=== PATIENT | male | born 1990 | race Caucasian/White ===

== ENCOUNTER 2019-10-04 19:15 | Inpatient (IN) | payer MEDICAID ==
[~2019-10-04] VITALS: Ht 175.3 cm; Wt 122.0 kg
[2019-10-04 19:54] LABS: BASOPHILS # (AUTO) 0.1 X10'3 (0-0.2); BASOPHILS % (AUTO) 0.4 % (0-1); EOSINOPHILS % (AUTO) 0.2 % (0-6); HEMATOCRIT 53.9 % (42.0-52.0); LYMPHOCYTES # (AUTO) 1.6 X10'3 (1.1-4.8); LYMPHOCYTES % (AUTO) 7.3 % (21-51); MEAN CORPUSCULAR HGB CONC 35.3 g/dL (33.0-36.5); MEAN CORPUSCULAR VOLUME 90.7 FL (78-98); MEAN PLATELET VOLUME 9.5 FL (7.4-10.4); MONOCYTES % (AUTO) 4.5 % (2-12); NEUTROPHILS # (AUTO) 18.6 X10'3 (1.8-7.7); NEUTROPHILS % (AUTO) 87.6 % (42-75); PLATELET COUNT 317 X10'3 (140-440); RED BLOOD COUNT 5.95 X10'6 (4.70-6.10); RED CELL DISTRIBUTION WIDTH 13.3 % (11.5-14.5); WHITE BLOOD COUNT 21.2 X10'3 (4.5-11.0)
[2019-10-04 20:03] LABS: TOTAL CARBON DIOXIDE 20.9 MMOL/L (24-32)
[2019-10-04] MEDS ORDERED: normal saline 1000ML IV soln IVB ONE (20:05)
[2019-10-04 20:28] LABS: ALANINE AMINOTRANSFERASE 52 U/L (12-78); ALBUMIN 3.8 G/DL (3.4-5.0); ALBUMIN/GLOBULIN RATIO 0.7 (1.1-1.5); ALKALINE PHOSPHATASE 116 IU/L (46-116); ANION GAP 15 (8-16); ASPARTATE AMINO TRANSFERASE 31 U/L (10-37); BILIRUBIN,TOTAL 0.8 MG/DL (0.1-1.0); BLOOD UREA NITROGEN 14 MG/DL (7-18); BUN/CREATININE RATIO 13.9 (5.4-32.0); CALCIUM 9.2 MG/DL (8.5-10.1); CHLORIDE 97 MMOL/L (99-107); CREATININE 1.01 MG/DL (0.60-1.10); GLUCOSE 375 MG/DL (70-104); POTASSIUM 4.4 MMOL/L (3.5-5.1); SODIUM 133 MMOL/L (135-145); TOTAL PROTEIN 8.9 G/DL (6.4-8.2); eGFR 87 ML/MIN
[2019-10-04] MEDS ORDERED: morphine 4 MG/ML inj SYRINge IV ONE ×3 (20:45→22:05)
[2019-10-04] MEDS ORDERED: ondansetron/PF 4mg/2ml inj IV ONE (20:45)
--- NOTE | 2019-10-04 20:48 | NUR ---
DR SANTAMARIA UPDATED OF PTS PAIN , 7 OUT OF 10 TO MID ABDOMEN AND NAUSEA. VERBAL RECEIVED FOR ZOFRAN AND MORPHINE IV. JUST STARTED 2ND OF 2 LITERS NS BOLUS. STABLE VS.
[2019-10-04 20:53] LABS: CLARITY,URINE CLEAR (Clear); COLOR,URINE YELLOW (Yellow); GLUCOSE, URINE >=1000 mg/dl (Neg); KETONES,URINE >=80 mg/dl (Neg); LEUKOCYTE ESTERASE ,URINE NEGATIVE (Neg); NITRITES, URINE NEGATIVE (Neg); OCCULT BLOOD,URINE TRACE-INTACT (Neg); PH,URINE 5.5 (4.8-8.0); PROTEIN,URINE 100 mg/dl (Neg); UROBILINOGEN,URINE 0.2 E.U/dL (0.2-1.0)
[2019-10-04 20:54] LABS: UA COLLECTION TYPE URINAL
[2019-10-04 21:00] LABS: BACTERIA,URINE NONE SEEN /HPF (Neg); FINE GRANULAR CAST 0-3 /LPF (NEGATIVE); HYALINE CASTS 0-3 /LPF (NEGATIVE); MUCUS STRANDS NONE SEEN /LPF (Neg); RBC,URINE NONE SEEN /HPF (0-2); SQUAMOUS EPITHELIAL CELL,UR MODERATE /LPF (FEW); WBC,URINE NONE SEEN /HPF (0-4)
[2019-10-04 21:05] LABS: LIPASE 14811 U/L (73-393)
--- NOTE | 2019-10-04 21:23 | NUR ---
LIPASE 14,811. GLU 375. PT AWAITING [facility] US.
--- NOTE | 2019-10-04 21:56 | NUR ---
VERBAL FOR ADTL PAIN MEDS BY dR. SANTAMARIA. MSIV 4 MG
[2019-10-04] MEDS ORDERED: insulin regular, human 10 units/0.1 ml syringe IV ONE (22:05)
--- NOTE | 2019-10-04 23:56 | NUR ---
PT STILL AWAITING [employer] FOR [facility] US. PT UPDATED ON PLAN OF CARE. HR 106, OTHERWISE VSS.
[2019-10-05] MEDS ORDERED: METF500T PO (00:09)
--- NOTE | 2019-10-05 00:35 | NUR ---
per dr. mcpherson pt to be admitted. pt updated and just called his uncle (who has been waiting for pt) to let him know. pt is agreeable to the plan. current vss. pain now 1 out of 10. pt is comfortable. given warm blanket.
[2019-10-05] MEDS ORDERED: glucagon, human recombinant 1mg kit SUBCUT PRN (01:25)
[2019-10-05] MEDS ORDERED: morphine 2 MG/ML inj. syringe IV PRN (01:25)
[2019-10-05] MEDS ORDERED: dextrose 50%-water 50ml dispensing syringe IV PRN ×2 (01:25)
[2019-10-05] MEDS ORDERED: MESSAGE TO PHARMACY PO ONE (01:25)
[2019-10-05] MEDS ORDERED: ondansetron/PF 4mg/2ml inj IV PRN (01:25)
[2019-10-05] MEDS ORDERED: dextrose ORAL solution 15 GM/59 ML bottle PO PRN ×2 (01:25)
[2019-10-05 01:47] LABS: HEMOGLOBIN A1C 9.7 % (4.5-6.2)
[2019-10-05] MEDS: normal saline 1000ml 1,000 ML IV SCH ×3 (01:53→20:16)
--- NOTE | 2019-10-05 01:56 | NUR ---
HR 106, OTHERWISE VSS, PAIN IS MINIMAL TO ABDOMEN. IPA [id number].
--- NOTE | 2019-10-05 02:05 | NUR ---
Patient in room ED 1. I have received report from CHRISTOPHER Gomes ER and had the opportunity to ask questions and assume patient care.
[2019-10-05 02:07] LABS: TRIGLYCERIDES 1031 MG/DL (20-135)
[2019-10-05 02:31] VITALS: BP 131/77
--- NOTE | 2019-10-05 02:31 | NUR ---
pt just arrived to surgical floor by w/c, alert, oriented and denies any pain
--- NOTE | 2019-10-05 06:31 | NUR ---
Problems reprioritized. Patient report given, questions answered & plan of care reviewed with HCRISTOPHER Mclean. Addendum: 10/05/19 at 0631 by Anais Brennan RN Amended: Links added.
[2019-10-05 07:00] VITALS: BP 119/77
[2019-10-05] MEDS: insulin Lispro (HumaLOG) vial - multi-dose SQ SCH ×3 (08:08→21:06)
[2019-10-05] MEDS: heparin, porcine 5000 units/ml vial SQ SCH ×2 (08:10→19:56)
[2019-10-05] MEDS: morphine 2 MG/ML inj. syringe IV PRN (09:57)
[2019-10-05 11:00] VITALS: BP 142/80
[2019-10-05 11:28] LABS: BASOPHILS # (AUTO) 0.1 X10'3 (0-0.2); HEMOGLOBIN 16.8 g/dl (14.0-17.9); MEAN PLATELET VOLUME 9.5 FL (7.4-10.4); WHITE BLOOD COUNT 18.2 X10'3 (4.5-11.0)
[2019-10-05 11:30] LABS: BASOPHILS % (AUTO) 0.5 % (0-1); EOSINOPHILS # (AUTO) 0.2 X10'3 (0-0.9); EOSINOPHILS % (AUTO) 0.9 % (0-6); HEMATOCRIT 47.1 % (42.0-52.0); LYMPHOCYTES # (AUTO) 2.8 X10'3 (1.1-4.8); LYMPHOCYTES % (AUTO) 15.4 % (21-51); MEAN CORPUSCULAR HEMOGLOBIN 31.9 PG (27.0-31.0); MEAN CORPUSCULAR HGB CONC 35.8 g/dL (33.0-36.5); MEAN CORPUSCULAR VOLUME 89.3 FL (78-98); MONOCYTES # (AUTO) 1.1 X10'3 (0-0.9); MONOCYTES % (AUTO) 5.8 % (2-12); NEUTROPHILS # (AUTO) 14.1 X10'3 (1.8-7.7); NEUTROPHILS % (AUTO) 77.4 % (42-75); PLATELET COUNT 286 X10'3 (140-440); RED BLOOD COUNT 5.28 X10'6 (4.70-6.10); RED CELL DISTRIBUTION WIDTH 13.5 % (11.5-14.5)
[2019-10-05 12:01] LABS: ALANINE AMINOTRANSFERASE 35 U/L (12-78); ALBUMIN 2.8 G/DL (3.4-5.0); ALBUMIN/GLOBULIN RATIO 0.6 (1.1-1.5); ALKALINE PHOSPHATASE 84 IU/L (46-116); ANION GAP 10 (8-16); ASPARTATE AMINO TRANSFERASE 21 U/L (10-37); BILIRUBIN,TOTAL 0.8 MG/DL (0.1-1.0); BLOOD UREA NITROGEN 9 MG/DL (7-18); BUN/CREATININE RATIO 10.6 (5.4-32.0); CALCIUM 8.1 MG/DL (8.5-10.1); CHLORIDE 102 MMOL/L (99-107); CREATININE 0.85 MG/DL (0.60-1.10); GLUCOSE 266 MG/DL (70-104); POTASSIUM 3.8 MMOL/L (3.5-5.1); SODIUM 135 MMOL/L (135-145); TOTAL CARBON DIOXIDE 23.3 MMOL/L (24-32); TOTAL PROTEIN 7.2 G/DL (6.4-8.2); eGFR > 90 ML/MIN
[2019-10-05 12:10] LABS: LIPASE 2786 U/L (73-393)
--- NOTE | 2019-10-05 16:45 | NUR ---
DM Consult: A1C 9.7. Pt admit w/ abdominal pain, N/V worsening when attempting to eat. Hx T2DM only taking metformin and dose was recently increased per MD note. DX pancreatitis secondary to hypertriglyceridemia w/ lipase 54010 and TG 1031. GLU 260 down from 375 as well on admit. Pt currently NPO w/ abdomen US showing hepatomegaly and steatosis per MD note. LBM 10/03. Pt will need DM/heart healthy diet eds once stable prior to d/c. Will monitor for diet advancement and ONS needs this admit. Rec: 1. advance diet per MD to carb controlled/low fat 2. anti-hyperlipidemic per MD approval w/ TG 1031 3. DM/heart healthy diet eds once stable prior to d/c 4. monitor for ONS needs as diet advances 5. weekly wts Addendum: 10/05/19 at [address] Amended: Links added.
[2019-10-05 18:00] VITALS: BP 108/57
--- NOTE | 2019-10-05 18:48 | NUR ---
Problems reprioritized. Patient report given, questions answered & plan of care reviewed with Pat RN.
[2019-10-05] MEDS: insulin glargine (Lantus) pen - multi-dose SQ SCH (22:20)
[2019-10-06] VITALS: BP 110/59
[2019-10-06 05:11] LABS: BASOPHILS % (AUTO) 0.3 % (0-1); EOSINOPHILS # (AUTO) 0.4 X10'3 (0-0.9); HEMATOCRIT 41.2 % (42.0-52.0); HEMOGLOBIN 14.5 g/dl (14.0-17.9); LYMPHOCYTES # (AUTO) 2.4 X10'3 (1.1-4.8); LYMPHOCYTES % (AUTO) 17.7 % (21-51); MEAN CORPUSCULAR HEMOGLOBIN 32.2 PG (27.0-31.0); MEAN CORPUSCULAR HGB CONC 35.3 g/dL (33.0-36.5); MEAN CORPUSCULAR VOLUME 91.4 FL (78-98); MEAN PLATELET VOLUME 9.6 FL (7.4-10.4); MONOCYTES % (AUTO) 7.4 % (2-12); NEUTROPHILS # (AUTO) 9.7 X10'3 (1.8-7.7); NEUTROPHILS % (AUTO) 71.6 % (42-75); PLATELET COUNT 219 X10'3 (140-440); RED CELL DISTRIBUTION WIDTH 13.7 % (11.5-14.5); WHITE BLOOD COUNT 13.5 X10'3 (4.5-11.0)
[2019-10-06 05:36] LABS: ALANINE AMINOTRANSFERASE 29 U/L (12-78); ALBUMIN 2.4 G/DL (3.4-5.0); ALBUMIN/GLOBULIN RATIO 0.6 (1.1-1.5); ALKALINE PHOSPHATASE 81 IU/L (46-116); ANION GAP 10 (8-16); ASPARTATE AMINO TRANSFERASE 18 U/L (10-37); BILIRUBIN,TOTAL 0.8 MG/DL (0.1-1.0); BLOOD UREA NITROGEN 11 MG/DL (7-18); BUN/CREATININE RATIO 15.1 (5.4-32.0); CALCIUM 7.3 MG/DL (8.5-10.1); CHLORIDE 106 MMOL/L (99-107); CREATININE 0.73 MG/DL (0.60-1.10); GLUCOSE 205 MG/DL (70-104); LIPASE 916 U/L (73-393); POTASSIUM 3.3 MMOL/L (3.5-5.1); SODIUM 139 MMOL/L (135-145); TOTAL CARBON DIOXIDE 22.7 MMOL/L (24-32); TOTAL PROTEIN 6.3 G/DL (6.4-8.2); eGFR > 90 ML/MIN
--- NOTE | 2019-10-06 06:42 | NUR ---
Patient in room REZA 354. I have received report from CHRISTOPHER Cardona and had the opportunity to ask questions and assume patient care.
[2019-10-06 07:00] VITALS: BP 116/75
[2019-10-06] MEDS: heparin, porcine 5000 units/ml vial SQ SCH ×2 (08:14→19:36)
[2019-10-06] MEDS: normal saline 1000ml 1,000 ML IV SCH ×2 (08:15→17:05)
[2019-10-06] MEDS: insulin Lispro (HumaLOG) vial - multi-dose SQ SCH ×3 (08:18→19:46)
[2019-10-06 11:00] VITALS: BP 112/78
[2019-10-06] MEDS ORDERED: magnesium 4gm in 100ml NS 100 ML IV PRN (11:25)
[2019-10-06] MEDS ORDERED: magnesium Cl slow-release 64mg tablet PO PRN (11:25)
[2019-10-06] MEDS ORDERED: magnesium 2GM in 50ml NS 50 ML IV PRN (11:25)
[2019-10-06] MEDS ORDERED: potassium CL 10mEq/100ml bag 100 ML IV PRN (11:25)
[2019-10-06] MEDS ORDERED: potassium Cl 20 mEq SR tablet PO PRN (11:25)
[2019-10-06] MEDS: potassium Cl 20 mEq SR tablet PO PRN ×3 (11:58→21:16)
[2019-10-06 18:00] VITALS: BP 112/79
--- NOTE | 2019-10-06 18:27 | NUR ---
Problems reprioritized. Patient report given, questions answered & plan of care reviewed with CHRISTOPHER PONCE.
--- NOTE | 2019-10-06 18:41 | NUR ---
Patient in room REZA 354. I have received report from ANGY WHITE and had the opportunity to ask questions and assume patient care. Patient just finished having dinner and shows no sign of distress.
[2019-10-06] MEDS: morphine 2 MG/ML inj. syringe IV PRN (20:26)
[2019-10-06] MEDS: insulin glargine (Lantus) pen - multi-dose SQ SCH (21:22)
[2019-10-07] VITALS: BP 113/66
[2019-10-07] MEDS: normal saline 1000ml 1,000 ML IV SCH ×2 (02:07→13:16)
[2019-10-07 04:45] LABS: BASOPHILS % (AUTO) 0.4 % (0-1); EOSINOPHILS # (AUTO) 0.6 X10'3 (0-0.9); EOSINOPHILS % (AUTO) 5.5 % (0-6); HEMATOCRIT 40.8 % (42.0-52.0); HEMOGLOBIN 14.3 g/dl (14.0-17.9); LYMPHOCYTES # (AUTO) 2.8 X10'3 (1.1-4.8); LYMPHOCYTES % (AUTO) 26.6 % (21-51); MEAN CORPUSCULAR HEMOGLOBIN 32.4 PG (27.0-31.0); MEAN CORPUSCULAR VOLUME 92.5 FL (78-98); MEAN PLATELET VOLUME 9.2 FL (7.4-10.4); MONOCYTES # (AUTO) 0.9 X10'3 (0-0.9); MONOCYTES % (AUTO) 8.3 % (2-12); NEUTROPHILS # (AUTO) 6.3 X10'3 (1.8-7.7); NEUTROPHILS % (AUTO) 59.2 % (42-75); PLATELET COUNT 225 X10'3 (140-440); RED BLOOD COUNT 4.41 X10'6 (4.70-6.10); RED CELL DISTRIBUTION WIDTH 13.7 % (11.5-14.5); WHITE BLOOD COUNT 10.7 X10'3 (4.5-11.0)
[2019-10-07 04:49] LABS: ALANINE AMINOTRANSFERASE 32 U/L (12-78); ALBUMIN 2.3 G/DL (3.4-5.0); ALBUMIN/GLOBULIN RATIO 0.5 (1.1-1.5); ALKALINE PHOSPHATASE 89 IU/L (46-116); ANION GAP 10 (8-16); ASPARTATE AMINO TRANSFERASE 29 U/L (10-37); BILIRUBIN,TOTAL 0.7 MG/DL (0.1-1.0); BLOOD UREA NITROGEN 8 MG/DL (7-18); BUN/CREATININE RATIO 11.8 (5.4-32.0); CALCIUM 7.9 MG/DL (8.5-10.1); CHLORIDE 104 MMOL/L (99-107); CREATININE 0.68 MG/DL (0.60-1.10); GLUCOSE 173 MG/DL (70-104); POTASSIUM 3.7 MMOL/L (3.5-5.1); SODIUM 137 MMOL/L (135-145); TOTAL CARBON DIOXIDE 23.4 MMOL/L (24-32); TOTAL PROTEIN 6.6 G/DL (6.4-8.2); eGFR > 90 ML/MIN
[2019-10-07 07:00] VITALS: BP 119/78
[2019-10-07] MEDS: heparin, porcine 5000 units/ml vial SQ SCH ×2 (07:51→19:06)
[2019-10-07] MEDS: insulin Lispro (HumaLOG) vial - multi-dose SQ SCH ×3 (08:05→19:07)
[2019-10-07] MEDS ORDERED: fenofibrate 48mg tablet PO SCH (08:30)
[2019-10-07] MEDS ORDERED: iohexol 300mg/ml 100ml inj. ONE (11:03)
--- NOTE | 2019-10-07 11:11 | NUR ---
Patient off the unit to CT by LELA KAUFFMAN IV.
[2019-10-07 13:02] VITALS: BP 126/88
--- NOTE | 2019-10-07 16:15 | NUR ---
reassessment: Pt advanced to full liquids PO 50-75% avg overall much improved from admit. Pt seen by RD and reports able to tolerate PO without GI symptoms. RD provided written/verbal DM/HH diet eds w/ RD contact information and CDE course information provided. RD encouraged pt to attend CDE course, reviewed CHO portion sizing, importance of GLU and TG management with hx pancreatitis, and verbal low fat diet guidelines for possible future flare-ups. Pt reports no concerns. RD encouraged pt to contact RD during or after admit if further questions/concerns. [facility] 10/06. Will monitor for diet advancement and tolerance. Rec: 1. advance diet per MD to carb controlled/low fat 2. anti-hyperlipidemic per MD approval w/ TG 1031 3. monitor for ONS needs as diet advances 4. weekly wts Addendum: 10/07/19 at [address] Amended: Links added.
[2019-10-07 18:00] VITALS: BP 139/82
--- NOTE | 2019-10-07 18:12 | NUR ---
Problems reprioritized. Patient report given, questions answered & plan of care reviewed with Gayla WHITE.
--- NOTE | 2019-10-07 18:53 | NUR ---
Patient in room REZA 354. I have received report from Lien WHITE and had the opportunity to ask questions and assume patient care.
[2019-10-07] MEDS ORDERED: FENO145T38 CORPAK (19:57)
[2019-10-07] MEDS: insulin glargine (Lantus) pen - multi-dose SQ SCH (20:49)
--- NOTE | 2019-10-07 21:16 | NUR ---
pt taken home by family member, pt walked to vehicle, all questions and discharge paperwork explained, pt stable at time of DC Addendum: 10/07/19 at 2212 by Tremaine Quiros RN pt taken home by family member, pt walked to vehicle, all questions and discharge paperwork explained and pt verbalized understanding of all teaching and follow up, IV removed, pt stable at time of DC.
== END 2019-10-07 21:17 | disposition home or self-care (01) | DRG 282 ==
LOC: ER 19:18 → ED HOLD 10-05 01:22 → SUR 3N 10-05 02:20
PROVIDERS: ADMIT Internal Medicine; ATTEND Family Medicine
DX: K85.90 Acute pancreatitis without necrosis or infection, unspecified (principal); E11.65 Type 2 diabetes mellitus with hyperglycemia; K76.0 Fatty (change of) liver, not elsewhere classified; E78.1 Pure hyperglyceridemia; E86.0 Dehydration; Z80.1 Family history of malignant neoplasm of trachea, bronchus and lung; Z82.5 Family history of asthma and other chronic lower respiratory diseases; Z83.3 Family history of diabetes mellitus
CPT/HCPCS: 36415; 71045; 74177; 76700; 80053; 81001; 82948; 83036; 83690; 84478; 84484; 85025; 87081; 93005; 96374; 96375; 96376; 99285; G0378; J1644; J1815; J2270; J2405; J7030; Q9967